=== PATIENT | male | born 1960 | race Caucasian/White ===

== ENCOUNTER 2024-02-06 06:46 | Inpatient (IN) | payer SELFPAY ==
[~2024-02-06] VITALS: Ht 167.6 cm; Wt 81.8 kg
[~2024-02-06 06:46] MED LIST: AMOX-457 PO; GLIP5TAB16 PO; LOSA-417 PO; METF-1211 PO
[2024-02-06 07:20] LABS: GLUCOMETER DEV NAME(LOC) ERT.5; GLUCOSE,POINT OF CARE 136 MG/DL (70-110)
[2024-02-06 07:52] LABS: BASOPHILS % (AUTO) 0.7 % (0.0-2.0); EOSINOPHILS % (AUTO) 3.7 % (1.0-6.0); HEMATOCRIT 38.7 % (41-53); HEMOGLOBIN 13.3 g/dL (13.5-17.5); LYMPHOCYTES # (AUTO) 2.3 K/uL (1.0-4.8); LYMPHOCYTES % (AUTO) 28.5 % (22.0-44.0); MEAN CORPUSCULAR HEMOGLOBIN 29.8 pg (26.0-34.0); MEAN CORPUSCULAR HGB CONC 34.4 G/dL (31.0-37.0); MEAN CORPUSCULAR VOLUME 87 fL (80-100); MONOCYTES # (AUTO) 0.8 K/uL (0.1-1.0); MONOCYTES % (AUTO) 9.7 % (2.0-9.0); NEUTROPHILS # (AUTO) 4.7 K/uL (1.8-7.7); NEUTROPHILS % (AUTO) 57.4 % (40.0-70.0); PLATELET COUNT (AUTO) 170 K/uL (150-450); RED BLOOD CELL COUNT(AUTO) 4.47 MIL/uL (4.50-5.90); RED CELL DISTRIBUTION WIDTH 13.8 % (11.5-14.5); WHITE BLOOD COUNT (AUTO) 8.1 K/uL (4.5-11.0)
[2024-02-06] MEDS: VANCOMYCIN 1GM/WATER(PEG/NADA) 200 ML IV ONE (07:57)
[2024-02-06 08:01] LABS: ANION GAP 13 mmol/L (8-16); CARBON DIOXIDE 22 mmol/L (22-29); CHLORIDE 105 mmol/L (98-107); CREATININE 0.79 mg/dL (0.60-1.30); GLOMERULAR FILTR. RATE CALC > 60 mL/min (>60); GLUCOSE,RANDOM 109 mg/dL (70-110); POTASSIUM 3.8 mmol/L (3.5-5.1); SODIUM SERUM 140 mmol/L (136-145); UREA NITROGEN, BLOOD 15 mg/dL (7-18)
[2024-02-06] MEDS ORDERED: IPRATROPIUM BROMIDE 0.5 MG/2.5 ML NEB SOLUTION NEB PRN (10:30)
[2024-02-06] MEDS ORDERED: ONDANSETRON HCL 4 MG/2 ML VIAL IVP PRN (10:30)
[2024-02-06] MEDS ORDERED: ALBUTEROL SULFATE 2.5 MG/0.5 ML NEB SOLUTION NEB PRN (10:30)
[2024-02-06] MEDS ORDERED: ACETAMINOPHEN 325 MG TABLET PO PRN (10:30)
[2024-02-06 12:33] VITALS: BP 151/81; PULSE 74; RESP 20; TEMP 97.7; O2SAT 99
[2024-02-06] MEDS: PIPERACILLIN/TAZO 3.375 GM/D5W 50 ML IV SCH (15:18)
[2024-02-06] MEDS ORDERED: SODIUM CHLORIDE 0.9% 500 ML IV ONE (15:22)
[2024-02-06] MEDS: HEPARIN SODIUM,PORCINE 5,000 UNITS/ML VIAL SQ SCH (15:24)
[2024-02-06] MEDS: OxyCODONE HCL/ACETAMINOPHEN 5-325 MG TABLET PO PRN (15:35)
[2024-02-06 19:51] VITALS: BP 113/60; PULSE 72; RESP 18; TEMP 97
[2024-02-06 20:10] LABS: GLUCOMETER DEV NAME(LOC) 6N.2B; GLUCOSE,POINT OF CARE 58 MG/DL (70-110)
[2024-02-06 20:11] LABS: GLUCOMETER DEV NAME(LOC) 6N.2B; GLUCOSE,POINT OF CARE 161 MG/DL (70-110)
[2024-02-06 20:11] LABS: GLUCOMETER DEV NAME(LOC) 6N.2B; GLUCOSE,POINT OF CARE 57 MG/DL (70-110)
[2024-02-06 22:00] LABS: GLUCOMETER DEV NAME(LOC) 6S.2; GLUCOSE,POINT OF CARE 140 MG/DL (70-110)
[2024-02-07 02:01] LABS: APPEARANCE,URINE CLEAR (CLEAR); BILIRUBIN,URINE NEGATIVE (NEGATIVE); COLOR,URINE LIGHT YELLOW (YELLOW); GLUCOSE, URINE (UA) NEGATIVE (NEGATIVE); KETONES,URINE NEGATIVE (NEGATIVE); LEUKOCYTE ESTERASE ,URINE NEGATIVE (NEGATIVE); NITRATE,URINE NEGATIVE (NEGATIVE); OCCULT BLOOD,URINE NEGATIVE (NEGATIVE); PH,URINE 5.5 (5.0-8.0); PROTEIN,URINE NEGATIVE (NEGATIVE); SPECIFIC GRAVITIY, URINE 1.021 (1.003-1.030); UROBILINOGEN,URINE <=1.0 mg/dL (<=1.0)
[2024-02-07 05:16] VITALS: BP 116/56; PULSE 70; RESP 18; TEMP 98.1
[2024-02-07] MEDS: GlipiZIDE 5 MG TABLET PO SCH (06:05)
[2024-02-07] MEDS: PANTOPRAZOLE SODIUM 40 MG DR TABLET PO SCH (07:56)
[2024-02-07] MEDS: LOSARTAN POTASSIUM 25 MG TABLET PO SCH (07:56)
[2024-02-07 08:10] VITALS: BP 113/55; PULSE 71; RESP 20; TEMP 98.5
[2024-02-07] MEDS ORDERED: DEXTROSE 50%-WATER 25 GM/50 ML SYRINGE IVP PRN (10:45)
[2024-02-07 10:56] LABS: GLUCOMETER DEV NAME(LOC) 6N.2B; GLUCOSE,POINT OF CARE 110 MG/DL (70-110)
[2024-02-07] MEDS: INSULIN LISPRO 100 UNITS/ML SQ PRN (11:28)
[2024-02-07 12:50] LABS: GLUCOMETER DEV NAME(LOC) 6S.2; GLUCOSE,POINT OF CARE 161 MG/DL (70-110)
[2024-02-07 16:08] VITALS: BP 100/71; PULSE 100; RESP 20; TEMP 97.8
[2024-02-07 20:05] VITALS: BP 128/66; PULSE 84; RESP 20; TEMP 98.5
[2024-02-07 20:21] LABS: GLUCOMETER DEV NAME(LOC) 6N.2B; GLUCOSE,POINT OF CARE 178 MG/DL (70-110)
[2024-02-08 04:38] VITALS: BP 125/65; PULSE 69; RESP 20; TEMP 97.5
[2024-02-08 07:46] LABS: GLUCOMETER DEV NAME(LOC) 6N.2B; GLUCOSE,POINT OF CARE 167 MG/DL (70-110)
[2024-02-08 07:51] LABS: GLUCOMETER DEV NAME(LOC) 6S.2; GLUCOSE,POINT OF CARE 118 MG/DL (70-110)
[2024-02-08 09:31] VITALS: BP 118/59; PULSE 72; RESP 18; TEMP 98.2
[2024-02-08 12:06] LABS: GLUCOMETER DEV NAME(LOC) 6S.2; GLUCOSE,POINT OF CARE 116 MG/DL (70-110)
[2024-02-08 15:42] VITALS: BP 119/61; PULSE 68; RESP 20; TEMP 97.4
[2024-02-08 18:20] LABS: GLUCOMETER DEV NAME(LOC) 6S.2; GLUCOSE,POINT OF CARE 161 MG/DL (70-110)
[2024-02-08 20:09] VITALS: BP 129/57; PULSE 73; RESP 20; TEMP 98.1
[2024-02-08 23:30] LABS: GLUCOMETER DEV NAME(LOC) 6N.2B; GLUCOSE,POINT OF CARE 157 MG/DL (70-110)
[2024-02-09 04:46] VITALS: BP 126/56; PULSE 73; RESP 20; TEMP 98.2
[2024-02-09 06:30] LABS: GLUCOMETER DEV NAME(LOC) 6S.2; GLUCOSE,POINT OF CARE 109 MG/DL (70-110)
[2024-02-09 09:10] VITALS: BP 103/45; PULSE 72; RESP 20; TEMP 97.3
[2024-02-09] MEDS: LEVOFLOXACIN 750 MG TABLET PO SCH (16:23)
[2024-02-09] MEDS: MetroNIDAZOLE 500 MG TABLET PO SCH (16:23)
[2024-02-09 17:14] VITALS: BP 125/70; PULSE 73; RESP 18; TEMP 97.8
[2024-02-09 19:55] VITALS: BP 119/60; PULSE 76; RESP 18; TEMP 98.3
[2024-02-09 20:11] LABS: GLUCOMETER DEV NAME(LOC) 6N.2B; GLUCOSE,POINT OF CARE 129 MG/DL (70-110)
[2024-02-09 20:20] LABS: GLUCOMETER DEV NAME(LOC) 6S.2; GLUCOSE,POINT OF CARE 188 MG/DL (70-110)
[2024-02-10 03:26] LABS: GLUCOMETER DEV NAME(LOC) 6N.2B; GLUCOSE,POINT OF CARE 218 MG/DL (70-110)
[2024-02-10 04:36] VITALS: BP 124/56; PULSE 77; RESP 18; TEMP 97.8
[2024-02-10 06:45] LABS: GLUCOMETER DEV NAME(LOC) 4E.2; GLUCOSE,POINT OF CARE 132 MG/DL (70-110)
[2024-02-10 07:13] LABS: BASOPHILS % (AUTO) 0.8 % (0.0-2.0); EOSINOPHILS % (AUTO) 2.5 % (1.0-6.0); HEMATOCRIT 40.5 % (41-53); HEMOGLOBIN 13.9 g/dL (13.5-17.5); LYMPHOCYTES # (AUTO) 2.2 K/uL (1.0-4.8); LYMPHOCYTES % (AUTO) 28.3 % (22.0-44.0); MEAN CORPUSCULAR HEMOGLOBIN 29.7 pg (26.0-34.0); MEAN CORPUSCULAR HGB CONC 34.3 G/dL (31.0-37.0); MEAN CORPUSCULAR VOLUME 87 fL (80-100); MONOCYTES # (AUTO) 0.8 K/uL (0.1-1.0); MONOCYTES % (AUTO) 9.9 % (2.0-9.0); NEUTROPHILS # (AUTO) 4.6 K/uL (1.8-7.7); NEUTROPHILS % (AUTO) 58.5 % (40.0-70.0); PLATELET COUNT (AUTO) 169 K/uL (150-450); RED BLOOD CELL COUNT(AUTO) 4.67 MIL/uL (4.50-5.90); RED CELL DISTRIBUTION WIDTH 13.7 % (11.5-14.5); WHITE BLOOD COUNT (AUTO) 7.8 K/uL (4.5-11.0)
[2024-02-10 07:35] LABS: ALANINE AMINOTRANSFERASE 37 U/L (12-78); ALBUMIN 3.3 g/dL (3.4-5.0); ALKALINE PHOSPHATASE 138 U/L (46-116); ANION GAP 8 mmol/L (8-16); ASPARTATE AMINOTRANSFERASE 29 U/L (15-37); BILIRUBIN,TOTAL 1.1 mg/dL (0.1-1.0); C-REACTIVE PROTEIN QUANT 0.29 mg/dL (0.00-0.30); CALCIUM, TOTAL 9.5 mg/dL (8.8-10.5); CARBON DIOXIDE 29 mmol/L (22-29); CHLORIDE 103 mmol/L (98-107); CREATININE 0.89 mg/dL (0.60-1.30); GLOMERULAR FILTR. RATE CALC > 60 mL/min (>60); GLUCOSE,RANDOM 149 mg/dL (70-110); POTASSIUM 3.8 mmol/L (3.5-5.1); SODIUM SERUM 140 mmol/L (136-145); TOTAL PROTEIN, SERUM 7.1 g/dL (6.4-8.2); UREA NITROGEN, BLOOD 15 mg/dL (7-18)
[2024-02-10 08:06] VITALS: BP 136/65; PULSE 90; RESP 18; TEMP 98.3
[2024-02-10 08:11] VITALS: BP 115/60; PULSE 80; RESP 20; TEMP 97.8
[2024-02-10] MEDS: VANCOMYCIN 1.5 GM/WATER(PEG) 300 ML IV ONE (13:31)
[2024-02-10 15:11] LABS: GLUCOMETER DEV NAME(LOC) 6N.2B; GLUCOSE,POINT OF CARE 184 MG/DL (70-110)
[2024-02-10 16:19] VITALS: BP 102/54; PULSE 68; RESP 18; TEMP 98.2
[2024-02-10 19:52] VITALS: BP 108/59; PULSE 77; RESP 18; TEMP 98
[2024-02-10] MEDS: VANCOMYCIN 1GM/WATER(PEG/NADA) 200 ML IV SCH (20:07)
[2024-02-11 02:11] LABS: GLUCOMETER DEV NAME(LOC) 6S.2; GLUCOSE,POINT OF CARE 201 MG/DL (70-110)
[2024-02-11 03:57] VITALS: BP 128/62; PULSE 66; RESP 18; TEMP 98.1
[2024-02-11 06:41] LABS: GLUCOMETER DEV NAME(LOC) 4E.2; GLUCOSE,POINT OF CARE 163 MG/DL (70-110)
[2024-02-11 06:41] LABS: GLUCOMETER DEV NAME(LOC) 4E.2; GLUCOSE,POINT OF CARE 136 MG/DL (70-110)
[2024-02-11 08:02] LABS: ANION GAP 12 mmol/L (8-16); CALCIUM, TOTAL 9.5 mg/dL (8.8-10.5); CARBON DIOXIDE 24 mmol/L (22-29); CHLORIDE 105 mmol/L (98-107); CREATININE 1.12 mg/dL (0.60-1.30); GLOMERULAR FILTR. RATE CALC > 60 mL/min (>60); GLUCOSE,RANDOM 152 mg/dL (70-110); POTASSIUM 3.8 mmol/L (3.5-5.1); SODIUM SERUM 141 mmol/L (136-145); UREA NITROGEN, BLOOD 17 mg/dL (7-18)
[2024-02-11] MEDS: MORPHINE SULFATE 2 MG/ML SYRINGE IVP PRN (08:04)
[2024-02-11 08:28] VITALS: BP 119/58; PULSE 68; RESP 19; TEMP 97.9
[2024-02-11] MEDS ORDERED: SODIUM CL IRRIG SOLN BOTTLE 250 ML IRRIG ONE (10:36)
[2024-02-11 14:21] LABS: GLUCOMETER DEV NAME(LOC) 6N.2B; GLUCOSE,POINT OF CARE 155 MG/DL (70-110)
[2024-02-11 15:26] VITALS: BP 109/54; PULSE 71; RESP 18; TEMP 97.9
[2024-02-11 20:09] VITALS: BP 134/74; PULSE 84; RESP 20; TEMP 97.5
[2024-02-11 21:10] LABS: GLUCOMETER DEV NAME(LOC) 6S.2; GLUCOSE,POINT OF CARE 124 MG/DL (70-110)
[2024-02-12 04:21] VITALS: BP 126/73; PULSE 71; RESP 20; TEMP 97.5
[2024-02-12 06:59] LABS: ANION GAP 11 mmol/L (8-16); CALCIUM, TOTAL 9.3 mg/dL (8.8-10.5); CARBON DIOXIDE 25 mmol/L (22-29); CHLORIDE 104 mmol/L (98-107); GLOMERULAR FILTR. RATE CALC > 60 mL/min (>60); GLUCOSE,RANDOM 134 mg/dL (70-110); POTASSIUM 3.8 mmol/L (3.5-5.1); SODIUM SERUM 140 mmol/L (136-145); UREA NITROGEN, BLOOD 17 mg/dL (7-18); VANCOMYCIN,RANDOM 18.5 mcg/mL (25.0-50.0)
[2024-02-12 07:15] LABS: GLUCOMETER DEV NAME(LOC) 6N.2B; GLUCOSE,POINT OF CARE 187 MG/DL (70-110)
[2024-02-12 07:16] LABS: GLUCOMETER DEV NAME(LOC) 6N.2B; GLUCOSE,POINT OF CARE 133 MG/DL (70-110)
[2024-02-12 08:09] VITALS: BP 126/84; PULSE 69; RESP 19; TEMP 97.7
[2024-02-12] MEDS: AMOX TR/POT CLAV 875 MG/125 MG TABLET PO SCH (11:40)
[2024-02-12 15:48] VITALS: BP 124/72; PULSE 72; RESP 18; TEMP 98.2
[2024-02-12 17:31] LABS: GLUCOMETER DEV NAME(LOC) 4E.2; GLUCOSE,POINT OF CARE 159 MG/DL (70-110)
[2024-02-12] MEDS ORDERED: AMOX-457 PO (19:01)
[2024-02-12] MEDS ORDERED: LEVO750T68 PO (19:01)
[2024-02-12 19:38] VITALS: BP 129/67; PULSE 76; RESP 18; TEMP 97.8
[2024-02-12] MEDS ORDERED: SODIUM CL IRRIG SOLN BOTTLE 250 ML IRRIG ONE (20:09)
[2024-02-12] MEDS: AMOX TR/POT CLAV 875 MG/125 MG TABLET PO ONE (20:17)
[2024-02-12 22:56] LABS: GLUCOMETER DEV NAME(LOC) 6S.2; GLUCOSE,POINT OF CARE 176 MG/DL (70-110)
[2024-02-13 03:10] LABS: GLUCOMETER DEV NAME(LOC) 4E.2; GLUCOSE,POINT OF CARE 130 MG/DL (70-110)
== END 2024-02-12 22:26 | disposition home or self-care (01) | DRG 603 ==
LOC: EMS 06:46 → 6S 10:28 → EDH 10:28 → UNDOADMIN 10:28 → 6S 12:04
PROVIDERS: ADMIT Hospitalist; ATTEND Hospitalist
DX: L03.115 Cellulitis of right lower limb (principal); E11.52 Type 2 diabetes mellitus with diabetic peripheral angiopathy with gangrene; T81.89XA Other complications of procedures, not elsewhere classified, initial encounter; I10 Essential (primary) hypertension; Y83.8 Other surgical procedures as the cause of abnormal reaction of the patient, or of later complication, without mention of misadventure at the time of the procedure; Z79.84 Long term (current) use of oral hypoglycemic drugs; Y92.89 Other specified places as the place of occurrence of the external cause
CPT/HCPCS: 73718; 80048; 80053; 80202; 81003; 82962; 85025; 86140; 87040; 87070; 87205; 93925; 99285; J1644; J2270; J2543; J7040; Q9967

== ENCOUNTER 2024-09-26 17:32 | Emergency (ER) | payer MEDICAID, OTHER ==
[~2024-09-26] VITALS: Ht 167.6 cm; Wt 75.0 kg
[~2024-09-26 17:32] MED LIST changes: +LEVO750T68 PO
[2024-09-26 17:45] VITALS: BP 153/54; PULSE 87; RESP 16; TEMP 98.5; O2SAT 97
[2024-09-26] MEDS ORDERED: CEPH-558 PO (19:24)
[2024-09-26] MEDS ORDERED: SULF-261 PO (19:24)
[2024-09-26] MEDS: SULFAMETHOX/TRIMETH DS 800-160 MG/TABLET PO ONE (19:45)
[2024-09-26] MEDS: CEPHALEXIN MONOHYDRATE 500 MG CAPSULE PO ONE (19:45)
[2024-09-26] MEDS: ACETAMINOPHEN 500 MG TABLET PO ONE (19:45)
== END 2024-09-26 19:49 | disposition home or self-care (01) ==
LOC: EMS 17:32
DX: L03.031 Cellulitis of right toe (principal); L60.0 Ingrowing nail; E11.9 Type 2 diabetes mellitus without complications; I10 Essential (primary) hypertension; Z79.899 Other long term (current) drug therapy; Z87.19 Personal history of other diseases of the digestive system
CPT/HCPCS: 82962; 99284